=== PATIENT | female | born 1935 | race Caucasian/White ===

== ENCOUNTER 2018-05-27 10:27 | Emergency (ER) | payer MEDICARE, OTHER, MEDICAID ==
[2018-05-27] MEDS: HYDROCODONE/APAP (5/325) TAB PO (13:52)
== END 2018-05-27 14:56 | disposition home or self-care (01) ==
LOC: E/R 10:27
DX: S32.10XA Unspecified fracture of sacrum, initial encounter for closed fracture (principal); I10 Essential (primary) hypertension; J45.909 Unspecified asthma, uncomplicated; W18.30XA Fall on same level, unspecified, initial encounter; Y92.002 Bathroom of unspecified non-institutional (private) residence as the place of occurrence of the external cause
CPT/HCPCS: 72170; 73510; 73700; 99284-25